=== PATIENT | female | born 1970 | race Caucasian/White ===

== ENCOUNTER → 2018-12-26 | Outpatient (CLI) | payer MEDICARE, BC ==
[~2018-12-26] MED LIST: ALBU8.5H8 INH; ATOR40TA68 PO
--- NOTE | 2018-12-26 17:26 | CONS ---
Assessment/Plan Assessment/Plan Hospital Course (Demo Recall) This is a 48-year-old female presenting with left worse than right knee pain. On examination as well as on radiographs the knee is fairly benign. She does have significant crepitance in the patellofemoral joint and a 2+ effusion. She also has severe Trendelenburg gait with Trendelenburg sign on the right. She is currently being seen by supervisor stone Dr. Costello. It is possible that she has an inflammatory arthritis and there are no signs on x-ray at this time. In addition her pain could be from weakness secondary to her lower back problems. Plan: Continue follow-up with Dr. Costello Start meloxicam and physical therapy for patellofemoral syndrome and for knee pain and swelling Patient should follow-up with her spine surgeon regarding her back issues. Follow-up PRN Consultation Date/Type/Reason Admit Date/Time Date of Consultation: Dec 26, 2018 Reason for Consultation Left worse than right knee pain Date/Time of Note DATE: 12/26/18 TIME: 17:15 Hx of Present Illness Is a 48-year-old female with a chief complaint of right and left knee pain. The pain is worse in the left knee. The pain began approximately 2 weeks ago on the left knee and several years ago on the right knee. Denies any injury. She recently saw Dr. Costello for her joint pain. per the patient she was found to have elevated inflammatory markers. He did administer a left knee steroid injection 1 week ago. States she had some partial relief. She is mostly concerned with her crepitance in the patellofemoral joint. Patient's pain is in the anterior aspect of the right and left knee. Pain is not radiating to the lower leg. The pain is rated as a 45/10. Patient denies complaints of numbness or tingling. The pain is exacerbated by climbing stairs and ambulation. Pain is not relieved by NSAID's. Patient has been taking Percocet on a p.r.n. basis as well as using ice. Significant history for back pain and surgery and has right greater than left numbness and weakness. ----- Duration: 2 weeks on the left several years on the right Injury: No Walking tolerance: Less than 1 block Limp: Yes Support: Cane Swelling: Yes Crepitation: Yes Instability: No Stairs: With difficulty Physical Therapy: No Injections: Steroid injection 1 week ago left knee NSAID's: No Prior surgery: No Back pain: Yes Hip pain: No Risk of AVN : No Patient denies fever, chills, shortness of breath, chest pain, nausea/vomiting, constipation, diarrhea, numbness, and tingling. Past Medical History Asthma Constipation Home Meds Reported Medications Atorvastatin* (Atorvastatin*) 40 Mg Tablet, 40 MG PO HS, TAB 07/16/15 Albuterol Sulfate* (Proair HFA*) 8.5 Gm Hfa.aer.ad, 2 PUFF INH Q4, INH 07/16/15 Allergies: Coded Allergies: Penicillins (Verified Allergy, Severe, ASTHMA, 07/16/15) tetracycline (Verified Allergy, Severe, ASTHMA, 07/16/15) Past Surgical History Back surgery Family History Significant Family History: no pertinent family hx Social History Alcohol Use: none Smoking Status: Never smoker Drug Use: none Exam/Review of Systems Exam Vitals Weight: 93 kg Height: 5 foot 2 inches Temperature: 90.4 Heart Rate: 88 Blood Pressure: 121/78 Respiratory Rate: 12 Exam General: Awake, alert, in no acute distress, pleasant and cooperative Heart: regular rhythm Lungs: breathing comfortably, no tachypnea or dyspnea MUSCULOSKELETAL: Right and Left Knee This is a well developed obese female who is alert, oriented times three and in no apparent distress. Skin is intact over the right and left knee as well as the lower extremity with no abrasions, lacerations, or ulcerations. Observation of the patient's gait reveals an antalgic gait with no thrust. There is a significant Trendelenburg gait as well as Trendelenburg sign on the right. Frontal plane alignment is slight valgus on the right and left knees. There is no pain to palpation of the joint line. The patient demonstrates grinding anteriorly with ROM. Range of motion: 0 extension to approximately 120 degrees of flexion. Collateral ligament testing reveals no instability with varus or valgus stress at 0 and 30 degrees of flexion. Negative Ingrid's and negative posterior drawer. Neurovascularly intact with 5/5 EHL/tibialis anterior/gastroc. Sensation decreased to light touch in a sural, saphenous, deep peroneal, superficial peroneal, medial and lateral plantar nerve distribution. Palpable, symmetric dorsalis pedis and posterior tibial pulses in both lower extremities. Hip examination normal Imaging Imaging The patient received a standard set of films today that were personally revi ewed. Imaging included a standing bilateral knee AP, PA flexion, merchant, and lateral views of the affected knee: There is neutral alignment of the knee. There is no loss of joint space and compartment(s). There is no osteophyte formation. There is no subchondral sclerosis. There are no subchondral cysts. LEANNE OZUNA MD Dec 26, 2018 17:25
--- NOTE | 2018-12-27 12:03 | RADRPT ---
PROCEDURE: Bilateral knee x-ray CLINICAL INDICATION: PAIN TECHNIQUE: AP weightbearing and lateral view(s) of the knees obtained. COMPARISON: None FINDINGS: There is mild osteopenia. No acute fracture or osseous aggressive changes such as erosion, osteolysis or periosteal reaction ar e seen. There is mild asymmetric narrowing of the right medial compartment with subchondral sclerosis. Mild r ight joint effusion present. There is spurring of the tibial spines of the left knee joint. Minimal narrowing of the medial compar tment with subchondral sclerosis. There is minimal spurring of the superior pole patella. Mild joint effusion is present in the left knee joint, similar to slightly greater than the contralateral side. The patellofemoral relationship is congruous bilaterally. Overlying soft tissues appear unremarkable. IMPRESSION: No acute or aggressive osseous changes identified in both knee joints. Mild degenerative changes in the right knee joint including mild joint space narrowing of the medial compartment with subchondral sclerosis. Mild degenerative changes of the left knee joint including tibial spine spurring and minimal narrowin g of the medial compartment with subchondral sclerosis. Mild spurring of the superior pole patella. Mild bilateral joint effusions. RPTAT: [facility]BD[facility] Physician Allan Gomez Date Time Electronically viewed and signed by Physician Allan Gomez on 12/27/2018 12:03 Jessica/
== END | disposition home or self-care (01) ==
LOC: HKI 14:24
PROVIDERS: ATTEND Orthopaedic Surgery Adult Reconstructive Orthopaedic Surgery
DX: M25.562 Pain in left knee (principal); M25.561 Pain in right knee; K59.00 Constipation, unspecified; K31.9 Disease of stomach and duodenum, unspecified; J45.909 Unspecified asthma, uncomplicated; E66.9 Obesity, unspecified; Z88.0 Allergy status to penicillin
CPT/HCPCS: 73564; G0463